=== PATIENT | male | born 1955 | race Asian ===

== ENCOUNTER 2016-12-06 16:54 | Emergency (ER) | payer OTHER ==
[2016-12-06 17:01] VITALS: BP 172/78
--- NOTE | 2016-12-06 17:06 | ED ---
Skin Complaint - HPI Summary HPI Summary: 61 YEAR OLD MALE PRESENTS WITH COMPLAINS OF A RASH ON HIS LEGS. HE HAS GOOD RESPONSE WITH HYDROCORTISONE CREAM 1% DURING A PREVIOUS FLARE UP. - History of Current Complaint Chief Complaint: [facility] Time Seen by Provider: 12/06/16 17:03 Stated Complaint: RASH Hx Obtained From: Patient Onset/Duration: Started Days Ago Skin Exposure Onset/Duration: Days Ago Timing: Constant Onset Severity: Moderate Current Severity: Moderate Pain Scale Used: 0-10 Numeric - 5 - Allergy/Home Medications Allergies/Adverse Reactions: Allergies Allergy/AdvReac Type Severity Reaction Status Date / Time No Known Allergies Allergy Verified 12/06/16 17:01 Home Medications: Home Medications [place]* 12/06/16 [History] Cardivas* 12/06/16 [History] Diabetes Med-?Name* 12/06/16 [History] Fedson* 12/06/16 [History] Glimison* 12/06/16 [History] Isolazine* 12/06/16 [History Confirmed 12/06/16] Rosutar* 12/06/16 [History] Starwag* 12/06/16 [History] Tendimac* 12/06/16 [History] PMH/Surg Hx/FS Hx/Imm Hx Previously Healthy: Yes Endocrine/Hematology History: Reports: Hx Diabetes Cardiovascular History: Reports: Hx Hypertension - Surgical History Surgery Procedure, Year, and Place: Cardiac Infectious Disease History: No Infectious Disease History: Denies: Traveled Outside the [place] in Last 30 Days - Social History Alcohol Use: None Substance Use Type: Reports: None Smoking Status (MU): Never Smoked Tobacco Review of Systems Constitutional: Negative Eyes: Negative ENT: Negative Cardiovascular: Negative Respiratory: Negative Gastrointestinal: Negative Genitourinary: Negative Musculoskeletal: Negative Positive: Rash All Other Systems Reviewed And Are Negative: Yes Physical Exam Triage Information Reviewed: Yes Vital Signs On Initial Exam: Initial Vitals Temp Pulse Resp BP Pulse Ox 36.8 C 71 12 172/78 100 12/06/16 16:56 12/06/16 16:56 12/06/16 16:56 12/06/16 16:56 12/06/16 16:56 Vital Signs Reviewed: Yes Appearance: Positive: Well-Appearing Skin: Positive: Scaly Skin/Lesions, Erythema @ Head/Face: Positive: Normal Head/Face Inspection Eyes: Positive: Normal ENT: Positive: Normal ENT inspection Neck: Positive: Supple Respiratory/Lung Sounds: Positive: Clear to Auscultation Diagnostics - Vital Signs Vital Signs Temp Pulse Resp BP Pulse Ox 12/06/16 16:56 36.8 C 71 12 172/78 100 - Laboratory Lab Statement: Any lab studies that have been ordered have been reviewed, and results considered in the medical decision making process. Course/Dx - Diagnoses Provider Diagnoses: Eczema Discharge - Discharge Plan Condition: Stable Disposition: HOME Prescriptions: Betamethasone Carri 0.1% CRM(NF) [Valisone 0.1% CM(NF)] 1 applic TOPICAL BID #90 gm predniSONE TAB* [Deltasone TAB*] 40 mg PO DAILY #10 tab Patient Education Materials: Eczema (ED) Referrals: Suze Mcallister [Medical Doctor] -
== END 2016-12-06 17:15 | disposition home or self-care (01) ==
LOC: UCEAST 16:54
DX: L30.9 Dermatitis, unspecified (principal)
CPT/HCPCS: 99202; G0463